=== PATIENT | female | born 1965 | race Caucasian/White ===

== ENCOUNTER 2018-12-18 01:52 | Emergency (ER) | payer BC ==
[~2018-12-18] VITALS: Ht 160 cm; Wt 89.4 kg
[2018-12-18 02:15] VITALS: Ht 160 cm; Wt 89.4 kg
[2018-12-18 03:15] LABS: BASOPHIL % 0.3 % (0-2); CALCIUM 8.9 mg/dL (8.5-10.1); CHLORIDE SERUM 101 mmol/L (98-107); GFR1 > 60 mL/min; GLUCOSE SERUM 113 mg/dL (74-106); PLATELET COUNT 278 x10^3mcL (130-400); POTASSIUM SERUM 4.1 mmol/L (3.5-5.1); RED CELL DISTRIBUTION WIDTH 13.6 % (11.5-14.5); SODIUM SERUM 138 mmol/L (136-145)
[2018-12-18 03:20] LABS: ALBUMIN 3.7 g/dL (3.4-5.0); ALKALINE PHOSPHATASE 73 U/L (46-116); ALT/SGPT 35 U/L (14-59); AST/SGOT 20 U/L (15-37); BILIRUBIN TOTAL 0.26 mg/dL (0.20-1.00); TOTAL PROTEIN, SERUM 7.9 g/dL (6.4-8.2)
[2018-12-18 03:58] VITALS: BP 135/97
== END 2018-12-18 03:58 | disposition home or self-care (01) ==
LOC: ED 01:52
PROVIDERS: Emergency Medicine
DX: F41.9 Anxiety disorder, unspecified (principal); F32.9 Major depressive disorder, single episode, unspecified; E78.00 Pure hypercholesterolemia, unspecified; Z88.0 Allergy status to penicillin
CPT/HCPCS: J2060; Q0092